=== PATIENT | female | born 1975 | race Caucasian/White ===

== ENCOUNTER 2016-10-03 14:59 | Emergency (ER) | payer OTHER ==
[2016-10-03 15:24] VITALS: BP 137/92
[2016-10-03] MEDS ORDERED: Ketorolac INJ* 60 MG/2 ML VIAL IM ONE (15:39)
--- NOTE | 2016-10-03 15:43 | ED ---
Lower Extremity - HPI Summary HPI Summary: 41 F w/ no PMH presents with left pinky and ring toe pain s/p door fell on foot. She was placing the storm door on her house when it slipped and landed on her foot. She could not lift the door off her foot so she has to drag it out. She sustained an abrasion to her left 4th metatarsal. She denies any numbness or tingling. She was able to ambulate in. She denies that the door broke and any foreign body ended up in her foot. Her last tetanus is unknown. - History of Current Complaint Chief Complaint: EDExtremityLower Stated Complaint: LT FOOT INJURY Time Seen by Provider: 10/03/16 15:33 Pain Intensity: 7 - Allergies/Home Medications Allergies/Adverse Reactions: Allergies Allergy/AdvReac Type Severity Reaction Status Date / Time Iodinated Contrast Media Allergy Severe GI Upset Verified 07/08/15 09:08 [CONTRAST DYE] Codeine Allergy Intermediate Nausea And Verified 07/08/15 09:08 Vomiting Iodine Allergy Intermediate Itching Verified 07/08/15 09:08 Latex Allergy Intermediate Hives Verified 07/08/15 09:08 PMH/Surg Hx/FS Hx/Imm Hx Endocrine/Hematology History: Denies: Hx Anticoagulant Therapy, Hx Diabetes, Hx Thyroid Disease Cardiovascular History: Denies: Hx Hypertension, Hx Pacemaker/ICD Respiratory History: Denies: Hx Asthma, Hx Chronic Obstructive Pulmonary Disease (COPD) GI History: Reports: Hx Ulcer - DUODENAL ULCER 2009, [place] NOW History: Denies: Hx Dialysis, Hx Renal Disease Sensory History: Reports: Hx Contacts or Glasses - WILL WEAR GLASSES DOS Denies: Hx Hearing Aid Opthamlomology History: Reports: Hx Contacts or Glasses - WILL WEAR GLASSES DOS Neurological History: Reports: Other Neuro Impairments/Disorders - BIPOLAR DISORDER, ADHD Denies: Hx Dementia, Hx Seizures Psychiatric History: Reports: Hx Anxiety - PANIC ATTACKS, Hx Depression Denies: Hx Panic Disorder, Hx Substance Abuse - Surgical History Surgery Procedure, Year, and Place: LAPAROSCOPIC [place]LE[place] [facility] [place]- [place]. - [facility] Hx Anesthesia Reactions: Yes - PT STATES SHE WAS VERY HYPERTENSIVE W/ 2008 - Immunization History Date of Tetanus Vaccine: <5YRS Date of Influenza Vaccine: 06/14 Infectious Disease History: No Infectious Disease History: Denies: Hx Hepatitis, Hx Human Immunodeficiency Virus (HIV), Traveled Outside the [place] in Last 30 Days - Family History Known Family History: Positive: Hypertension - Social History Alcohol Use: Weekly Alcohol Amount: 2 BEERS/WEEK Substance Use Type: Reports: Marijuana Substance Use Comment - Amount & Last Used: 1 WEEK AGO Smoking Status (MU): Former Smoker Type: Cigarettes Amount Used/How Often: 1/2 PPD FOR 3 YRS Length of Time of Smoking/Using Tobacco: 3 YRS Have You Smoked in the Last Year: No Review of Systems Negative: Fever Negative: Chest Pain Negative: Shortness Of Breath Positive: Myalgia - pain of 4th and 5th metatarsal Positive: Other - abrasion of 4th metatarsal All Other Systems Reviewed And Are Negative: Yes Physical Exam Triage Information Reviewed: Yes Vital Signs On Initial Exam: Initial Vitals Temp Pulse Resp BP Pulse Ox 98.3 F 88 16 137/92 100 10/03/16 15:19 10/03/16 15:19 10/03/16 15:19 10/03/16 15:19 10/03/16 15:19 Vital Signs Reviewed: Yes Appearance: Positive: Well-Appearing Skin: Positive: Warm, Dry, Other - abrasion with skin flap present on 4th metatarsal, ecchymosis noted of 5th metatarsal Head/Face: Positive: Normal Head/Face Inspection Eyes: Positive: Normal, Conjunctiva Clear ENT: Positive: Normal ENT inspection, Pharynx normal, TMs normal Respiratory/Lung Sounds: Positive: Clear to Auscultation, Breath Sounds Present Cardiovascular: Positive: Normal, RRR Musculoskeletal: Positive: Strength/ROM Intact - of left toes and, Other - pain in palpation of 4th and 5th metatarsal, good pulses, capillary refill <2secs, sensation grossly intact Diagnostics - Vital Signs Vital Signs Temp Pulse Resp BP Pulse Ox 10/03/16 15:19 98.3 F 88 16 137/92 100 - Laboratory Lab Statement: Any lab studies that have been ordered have been reviewed, and results considered in the medical decision making process. - Radiology foot Xray Interpretation: No Acute Changes Radiology Interpretation Completed By: Radiologist Lower Extremity Course/Dx - Course Course Of Treatment: 41F presents with pain of 4th and 5th metatarsal s/p dropping a door on her toes. She has an abrasion with skin flap of 4th metatarsal that cleaned and placed steristrip on, has ecchymosis of 5th metatarsal, full ROM of toes, gave tetanus, xray showed no fracture, will treat conservatively patient agrees with plan - Diagnoses Differential Diagnosis/HQI/PQRI: Positive: Contusion, Fracture (Closed), Sprain Provider Diagnoses: Pain in toe of left foot Discharge - Discharge Plan Condition: Good Disposition: HOME Patient Education Materials: Foot Contusion (ED) Referrals: [facility] [place] [facility] [Outside] Additional Instructions: Take Tylenol or ibuprofen every 6 hours as needed for pain Apply ice, rest, elevate Establish care with primary care physician and if symptoms persist follow up Return to ED if develop numbness, tingling, inability to move joint, or any new or worsening symptoms
[2016-10-03] MEDS ORDERED: Tetan/Diph/Pertus SYR(Tdap)* 0.5 ML SYR(BOOSTRIX) use SYR IM ONE (15:52)
--- NOTE | 2016-10-03 16:27 | RAD ---
INDICATION: Pain overlying the fourth and fifth toes after dropping a door on her foot COMPARISON: None. TECHNIQUE: 3 views of the left foot were obtained. FINDINGS: The adequately corticated bones are properly aligned. Joint spaces appear maintained. No fracture, dislocation or focal bony abnormality is seen. IMPRESSION: Normal radiograph of the foot. If the patient's symptoms persist, follow-up imaging is recommended.
== END 2016-10-03 17:24 | disposition home or self-care (01) ==
LOC: ED 14:59
DX: M79.675 Pain in left toe(s) (principal); W20.8XXA Other cause of strike by thrown, projected or falling object, initial encounter; Y93.E9 Activity, other interior property and clothing maintenance; Y92.009 Unspecified place in unspecified non-institutional (private) residence as the place of occurrence of the external cause; Z87.891 Personal history of nicotine dependence
CPT/HCPCS: 90471; 90715; 96372; 99282; J1885